=== PATIENT | male | born 1990 | race Caucasian/White ===

== ENCOUNTER 2018-10-13 19:45 | Emergency (ER) | payer BC ==
[2018-10-13] MEDS ORDERED: LIDOCAINE 1% MPF 5 ML VIAL ONE (20:22)
[2018-10-13] MEDS ORDERED: BUPIVACAINE 0.5% PF 10 ML VIAL ONE (20:22)
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
[2018-10-13] MEDS ORDERED: TETANUS & DIPHTHERIA TOX,ADULT 0.5 ML VIAL ONE (20:54)
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
== END 2018-10-13 23:45 | disposition home or self-care (01) ==
LOC: ER 19:45
PROC: 0CQ0XZZ Repair Upper Lip, External Approach (ICD-10-PCS; principal; 2018-10-13)
DX: S01.511A Laceration without foreign body of lip, initial encounter (principal); V86.55XA Driver of 3- or 4- wheeled all-terrain vehicle (ATV) injured in nontraffic accident, initial encounter; Z23 Encounter for immunization
CPT/HCPCS: 70450; 70486; 71045; 72125; 76377; 90714; 99285